=== PATIENT | female | born 1945 | race Caucasian/White ===

== ENCOUNTER → 2017-06-30 | Outpatient (CLI) | payer MEDICARE, BC ==
[~2017-06-30] VITALS: Ht 162.6 cm; Wt 83.6 kg
[~2017-06-30] MED LIST: ALBUTEROL17 GM INH; ANORO ELLIPTA1 EACH INH; ARTIFICIAL TEAR15 M6 OP; ASPIRIN ENTERI325 M1 PO; CLARITIN10 M1 PO; COLACE PO; COREG3.125 MG PO; CRESTOR5 MG PO; EFFIENT10 MG PO; FAST RELIEF LAX10 MG RC; HYDROCHLOROTHIA25 MG PO; HYDROCODONE-APA1 T42 PO; ISOSORBIDE DINI30 MG PO; LEVAQUIN750 MG PO; LIDODERM30 EA TOP; LISINOPRIL5 MG PO; METOPROLOL SUCC25 MG PO; NEXIUM PO; NITROGLYGERIN0.4 MG SL; PERCOCET 5-3251 TAB PO; TYLENOL325 M1 PO; ZOLOFT100 MG PO; [UNRECOGNIZED DRUG - CODE] PO
--- NOTE | ~2017-06-30 | EKG ---
PATIENT: ZENA BARNEY UNIT #: [id number] Ventricular Rate: 64 BPM Atrial Rate: 64 BPM P-R Interval: 180 ms QRS Duration: 80 ms Q-T Interval: 426 ms QTC Calculation(Bezet): 439 ms P [place]: 53 degrees Calculated R [place]: 4 degrees Calculated T [place]: 33 degrees Diagnosis Line: Normal sinus rhythm Diagnosis Line: Normal ECG Diagnosis Line: When compared with ECG of 07-JUL-2012 05:47, Diagnosis Line: Vent. rate has decreased BY 38 BPM Diagnosis Line: Confirmed by JEANIE ZAMORA MD ([id number]) on 06/30/2017 Diagnosis Line: 7:44:13 PM INTERPRETING MD: NOAH VAUGHN
[2017-06-30 07:57] LABS: HEMATOCRIT 36.2 % (35.0-45.0); HEMOGLOBIN 12.1 gm/dL (12.0-16.0); MEAN CORPUSCULAR HEMOGLOBIN 29.5 PG (28-34); MEAN CORPUSCULAR HGB CONC 33.5 g/dL (30-36); MEAN PLATELET VOLUME 7.1 FL (6.5-11.5); RED BLOOD COUNT 4.11 X10e (3.90-5.30); RED CELL DISTRIBUTION WIDTH 13.7 % (11.0-15.5); WHITE BLOOD COUNT 5.7 X10e3 (4.0-10.5)
[2017-06-30 08:11] LABS: PROTHROMBIN TIME (PATIENT) 10.8 SECONDS (10.0-11.7)
[2017-06-30 08:21] LABS: CALCIUM SERUM 9.4 mg/dL (8.4-10.2); GLOM FILT RATE Estimated 56.7 mL/min (>60); POTASSIUM 4.4 mmol/L (3.5-5.1)
== END | disposition home or self-care (01) ==
LOC: CCVL 07:27
PROVIDERS: Internal Medicine Cardiovascular Disease
DX: I25.119 Atherosclerotic heart disease of native coronary artery with unspecified angina pectoris (principal); E78.5 Hyperlipidemia, unspecified; J44.9 Chronic obstructive pulmonary disease, unspecified; K21.9 Gastro-esophageal reflux disease without esophagitis; I10 Essential (primary) hypertension; Z87.891 Personal history of nicotine dependence; Z85.118 Personal history of other malignant neoplasm of bronchus and lung; Z88.8 Allergy status to other drugs, medicaments and biological substances; Z88.5 Allergy status to narcotic agent; Z98.61 Coronary angioplasty status; Z95.818 Presence of other cardiac implants and grafts; Z79.82 Long term (current) use of aspirin; Z79.899 Other long term (current) drug therapy; Z98.890 Other specified postprocedural states
CPT/HCPCS: 36415; 80048; 85027; 85610; 85730; 93005; C1769; C1887; C1894; J1644; J2250; J3010